=== PATIENT | male | born 1980 | race American Indian/Alaskan Native ===

== ENCOUNTER 2022-03-13 08:56 | Emergency (ER) | payer SELFPAY ==
[2022-03-13 09:13] VITALS: BP 150/115
[2022-03-13] MEDS ORDERED: ASPIRIN 325 MG TAB PO ONE (09:13)
--- NOTE | 2022-03-13 09:59 | XRay Report ---
CHEST 2 VIEWS INDICATION / CLINICAL INFORMATION: Chest Pain. COMPARISON: None available. FINDINGS: SUPPORT DEVICES: None. HEART / MEDIASTINUM: No significant abnormality. LUNGS / PLEURA: No significant pulmonary or pleural abnormality. No pneumothorax. ADDITIONAL FINDINGS: No significant additional findings. IMPRESSION: 1. No acute findings. Signer Name: Garett Collier Jr, MD Signed: 03/13/2022 9:55 AM Workstation Name: [id number]
[2022-03-13 11:02] LABS: Basophils % (Auto) 0.5 % (0.0-1.8); Eosinophils # (Auto) 0.1 K/mm3 (0.0-0.4); Eosinophils % (Auto) 0.9 % (0.0-4.3); Hematocrit 47.7 % (35.5-45.6); Hemoglobin 15.8 gm/dl (11.8-15.2); Lymphocytes # (Auto) 1.5 K/mm3 (1.2-5.4); Lymphocytes % (Auto) 21.7 % (13.4-35.0); Mean Corpuscular HGB Conc 33 % (32-34); Mean Corpuscular Volume 99 fl (84-94); Monocytes # (Auto) 0.7 K/mm3 (0.0-0.8); Monocytes % (Auto) 10.4 % (0.0-7.3); Platelet Count 285 K/mm3 (140-440); Red Blood Count 4.81 M/mm3 (3.65-5.03); Red Cell Distribution Width 13.9 % (13.2-15.2)
[2022-03-13 11:28] LABS: INR 0.91 (0.87-1.13)
[2022-03-13 11:29] LABS: Partial Thromboplastin Time 28.3 Sec. (24.2-36.6)
[2022-03-13 11:46] LABS: Alanine Aminotransferase 24 units/L (7-56); Albumin 4.6 g/dL (3.9-5); BUN/Creatinine Ratio 7; Blood Urea Nitrogen 8 mg/dL (9-20); Calcium 9.1 mg/dL (8.4-10.2); Hemolysis Index 3
--- NOTE | 2022-03-14 10:03 | Electrocardiograph Report ---
[facility], [place] Test Date: 2022-03-13 Test Time: 09:17:18 Pat Name: SAEID WEISSJenniferMONROY Department: Room: Gender: M Roustabout Head: LUAN : 1980 Requested By: ED DOC Order Number: [id number] Reading MD: Braxton Hicks Measurements Intervals [place] Rate: 102 P: 69 W[place]: 161 QRS: 66 QRSD: 77 T: 44 QT: 342 QTc: 446 Interpretive Statements Sinus tachycardia No previous ECG available for comparison Electronically Signed On 03-14-2022 10:03:15 EDT by Braxton Hicks
== END 2022-03-14 02:50 | disposition left against medical advice (07) ==
LOC: ED 08:56
DX: R07.9 Chest pain, unspecified (principal); R51.9 Headache, unspecified; Z53.21 Procedure and treatment not carried out due to patient leaving prior to being seen by health care provider
CPT/HCPCS: 36415; 71046; 80053; 84484; 85025; 85610; 85730; 93005